=== PATIENT | male | born 1960 | race Asian ===

== ENCOUNTER 2018-04-17 20:58 | Emergency (ER) | payer OTHER ==
[2018-04-17 21:12] VITALS: BP 140/70; PULSE 78; TEMP 98; BMI 19.8
[2018-04-17] MEDS ORDERED: DIPHTH,PERTUSS(ACELL),TET 0.5 ML DISP.SYRIN IM ONE ×2 (22:29→22:30)
--- NOTE | 2018-04-17 22:29 | PDOC ---
History of Present Illness - General Chief Complaint: Laceration Stated Complaint: JOB INJURY Time Seen by Provider: 04/17/18 21:39 - History of Present Illness Initial Comments: 04/17/18 22:25 58-year-old male with a past medical history significant for diabetes presents for evaluation of a laceration on his left fifth finger. 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 He is not current on tetanus. Past History - Past Medical History Allergies/Adverse Reactions: Allergies Allergy/AdvReac Type Severity Reaction Status Date / Time No Known Allergies Allergy Verified 04/17/18 22:28 Home Medications: Ambulatory Orders Aspirin 81 mg PO ASDIR 04/17/18 Cephalexin [Keflex] 500 mg PO QID #20 capsule 04/17/18 metFORMIN HCL [Metformin HCl] 500 mg PO ASDIR 04/17/18 - Suicide/Smoking/Psychosocial Hx Smoking History: Never smoked Hx Alcohol Use: No Drug/Substance Use Hx: No Review of Systems - Review of Systems Integumentary: Yes: See HPI *Physical Exam - Vital Signs Last Vital Signs Temp Pulse Resp BP Pulse Ox 98 F 78 20 140/70 100 04/17/18 21:07 04/17/18 21:07 04/17/18 21:07 04/17/18 21:07 04/17/18 21:07 - Physical Exam Comments: 04/17/18 22:26 There is a 1 cm laceration on the ulnar aspect left fifth finger of the overlying the PIPJ FDS and FDP work independently there are no gross sensorimotor deficits is neurovascularly intact. Moderate Sedation - Procedure Monitoring Vital Signs: Procedure Monitoring Vital Signs Temperature 98 F 04/17/18 21:07 Pulse Rate 78 04/17/18 21:07 Respiratory Rate 20 04/17/18 21:07 Blood Pressure 140/70 04/17/18 21:07 O2 Sat by Pulse Oximetry (%) 100 04/17/18 21:07 Medical Decision Making - Medical Decision Making 04/17/18 22:26 Under aseptic technique 3 interrupted 4-0 nylon sutures were placed in a simple fashion approximating the edges done without complication after 6 mL of 1% lidocaine was used for digital block. The wound was then copiously irrigated before was closed *DC/Admit/Observation/Transfer Diagnosis at time of Disposition: Laceration of finger - Discharge Dispostion Disposition: HOME Condition at time of disposition: Stable Decision to Admit order: No - Referrals Referrals: Kaylee Zhu MD [Primary Care Provider] - Zion Ward MD [Staff Physician] - - Patient Instructions Printed Discharge Instructions: DI for Laceration Repair Additional Instructions: Keep the dressing on for 48 hours. After which he may remove and wash the area with soap and water and leave it open to air. The sutures stay in for 10 days. Return to the emergency room in 10 days for suture removal or follow-up with hand surgery in 2-3 days for further evaluation and treatment options. Please take the antibiotics as directed. - Post Discharge Activity
== END 2018-04-17 22:37 | disposition home or self-care (01) ==
LOC: JERFT 20:58
PROC: 3E0234Z Introduction of Serum, Toxoid and Vaccine into Muscle, Percutaneous Approach (ICD-10-PCS; principal; 2018-04-17)
PROC: 0HQGXZZ Repair Left Hand Skin, External Approach (ICD-10-PCS; 2018-04-17)
DX: S61.217A Laceration without foreign body of left little finger without damage to nail, initial encounter (principal); W27.8XXA Contact with other nonpowered hand tool, initial encounter; Y93.89 Activity, other specified; Y92.69 Other specified industrial and construction area as the place of occurrence of the external cause; Y99.0 Civilian activity done for income or pay
CPT/HCPCS: 90715; 99281-25